=== PATIENT | female | born 1945 | race Caucasian/White ===

== ENCOUNTER 2017-05-27 13:37 | Outpatient (CLI) | payer OTHER ==
[2014-07-02 15:50] VITALS: BP 158/62
--- NOTE | 2017-05-27 13:58 | Diagnostic Imaging Report ---
MELODIE CHERRY (REAL ESTATE REPRESENTATIVE) - OP [facility] [id number] [id number] Report Submission Date: May 27, 2017 1:57:34 PM CDT Patient Study Name: JAIME CABELLO Date: May 27, 2017 1:46:31 PM CDT Modality Type: CR Gender: F Description: UPPER EXTREMITY : 47 Institution: [facility] Physician: MELODIE CHERRY (REAL ESTATE REPRESENTATIVE) - OP Examination: Plain film wrist History: Wrist discomfort Comparison exams: None available Findings: 3 views the wrist demonstrates osteopenia. 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 No evidence for fracture. No soft tissue abnormality. Impression: Osteopenia. Degenerative changes. No fracture. Electronically signed on May 27, 2017 1:57:34 PM CDT by: Jacobo OSULLIVAN
== END 2017-05-27 13:40 ==
LOC: RAD 13:37
PROVIDERS: ATTEND Nurse Practitioner Family
DX: M25.532 Pain in left wrist (principal)
CPT/HCPCS: 73110

== ENCOUNTER 2017-08-25 09:22 | Outpatient (CLI) | payer OTHER ==
[2014-07-02 15:50] VITALS: BP 158/62
[2017-08-25 09:42] LABS: BASOPHILS % 0.7 (0.0-1.5); EOSINOPHILS % 2.1 % (0.0-6.8); MEAN CORPUSCULAR HEMOGLOBIN 33.3 pg (28.0-34.0); MEAN CORPUSCULAR VOLUME 101.6 fl (80.0-100.0); MONOCYTES % 5.3 % (0.0-11.0); NEUTROPHILS # 3.9 # k/uL (1.4-7.7)
== END 2017-08-25 09:23 ==
LOC: LAB 09:22
PROVIDERS: ATTEND Nurse Practitioner Family
DX: D75.89 Other specified diseases of blood and blood-forming organs (principal)
CPT/HCPCS: 36415; 85025